=== PATIENT | female | born 1955 | race Caucasian/White ===

== ENCOUNTER 2016-05-31 08:03 | Outpatient (RCR) | payer OTHER ==
[~2016-05-31 08:03] MED LIST: DICL75TA2 PO; DOXY100C2 PO; HYDR-3812 PO; LEVO500T2 PO; ONDA4TAB8 PO; ONDA8TAB13 PO; SULF1TAB35 PO
== END 2016-06-03 08:00 | disposition home or self-care (01) ==
PROVIDERS: ATTEND Nurse Practitioner Family
DX: S89.91XD Unspecified injury of right lower leg, subsequent encounter (principal); Y99.8 Other external cause status; V48.0XXD Car driver injured in noncollision transport accident in nontraffic accident, subsequent encounter

== ENCOUNTER 2016-07-15 07:52 | Outpatient (RCR) | payer BC, OTHER ==
--- OUTSIDE RECORDS SUMMARY | 2016-06-15 10:57 | XMS REPORT | Continuity of Care Document ---
Author Author [facility] Address Unknown Phone Unavailable Allergies Active Description Code Type Severity Reaction Onset Reported/Identified Relationship to Patient Clinical Status Yes No Known Drug Allergies [id number] Drug Allergy Unknown N/ A 12/09/2014 Medications Problems Date Dx Coded Attending Type Code Diagnosis Diagnosed By 11/06/2013 ZULAY YBARRA DO V70.0 ROUTINE GENERAL MEDICAL EXAMINATION AT A HEALTH CARE FACILITY 12/10/2014 ILEANA WAGNER DO Ot 599.0 URIN TRACT INFECTION NOS 12/10/2014 ILEANA WAGNER DO Ot 780.60 FEVER, UNSPECIFIED 12/10/2014 ILEANA WAGNER DO Ot 790.29 OTHER ABNORMAL GLUCOSE 09/24/2015 PACO SMITH, JOSE Ash Ot M17.11 UNILATERAL PRIMARY OSTEOARTHRITIS, RIGHT 09/24/2015 JOSE ANTONIO MD Ot S80.01XA CONTUSION OF RIGHT KNEE, INITIAL ENCOUNT 09/24/2015 JOSE ANTONIO MD Ot V48.0XXA [facility]RAW[facility] 09/24/2015 JOSE ANTONIO MD Ot Y92.[address] [facility] [address] 09/24/2015 JOSE ANTONIO MD Ot Y99.8 OTHER EXTERNAL CAUSE STATUS 09/25/2015 JOSE ANTONIO MD Ot M17.11 UNILATERAL PRIMARY OSTEOARTHRITIS, RIGHT 09/25/2015 JOSE ANTONIO MD Ot S80.01XA CONTUSION OF RIGHT KNEE, INITIAL ENCOUNT 09/25/2015 JOSE ANTONIO MD Ot V48.0XXA DRAWING CHECKER [facility] 09/25/2015 JOSE ANTONIO MD Ot Y92.[address] [facility] [address] 09/25/2015 JOSE ANTONIO MD Ot Y99.8 OTHER EXTERNAL CAUSE STATUS 10/11/2015 VINNIE MOSS Ot L03.115 CELLULITIS OF RIGHT LOWER LIMB 10/11/2015 VINNIE MOSS Ot S70.11XD CONTUSION OF RIGHT THIGH, SUBSEQUENT ENC 10/13/2015 VINNIE MOSS Ot L03.115 CELLULITIS OF RIGHT LOWER LIMB 10/13/2015 VINNIE MOSS Ot S70.11XD CONTUSION OF RIGHT THIGH, SUBSEQUENT ENC Procedures Results Encounters ACCT No. Visit Date/Time Discharge Status Pt. Type Provider Facility Loc./Unit Complaint [id number] 11/07/2013 07:57:00 11/07/2013 23: 59:[address] [facility] Outpatient ZULAY YBARRA DO
== END 2016-07-15 11:18 | disposition home or self-care (01) ==
PROVIDERS: ATTEND Nurse Practitioner Family
DX: S89.91XD Unspecified injury of right lower leg, subsequent encounter (principal); Y99.8 Other external cause status; V48.0XXD Car driver injured in noncollision transport accident in nontraffic accident, subsequent encounter

== ENCOUNTER → 2018-07-20 | Outpatient (CLI) | payer BC ==
[~2018-07-20] MED LIST changes: +ACHD5005 PO; -HYDR-3812 PO
--- NOTE | 2018-07-20 16:42 | Diagnostic Imaging Report ---
PROCEDURE: CT right lower extremity without contrast. TECHNIQUE: Axially acquired CT was obtained through the right lower extremity without intravenous contrast. Coronal and sagittal reformations were also performed. Auto Exposure Controls were utilized during the CT exam to meet ALARA standards for radiation dose reduction. INDICATION: Primary osteoarthritis. FINDINGS: Multiple images of the right lower extremity were obtained using the Microport knee protocol established for Dr. Hewitt. There is no fracture or acute bony abnormality identified. There is severe degenerative disease involving the medial compartment of each knee joint. There is only mild degenerative disease of the lateral compartment of the right knee joint. There is moderate narrowing of the lateral aspect of the patellofemoral space on the right. There also appears to be a small joint effusion present. IMPRESSION: 1. Routine images of the right lower extremity obtained using the Microport knee protocol. 2. There is no acute bony abnormality identified. 3. There is severe degenerative disease involving the medial compartment of both knee joints. Dictated by: Dictated on workstation # [id number]
== END ==
LOC: RAD 07:32
PROVIDERS: ATTEND Orthopaedic Surgery
DX: M17.11 Unilateral primary osteoarthritis, right knee (principal)
CPT/HCPCS: 73700

== ENCOUNTER 2018-09-06 09:08 | Outpatient (CLI) | payer BC ==
[~2018-09-06] VITALS: Ht 157.5 cm; Wt 93.7 kg
[2018-09-06] MEDS ORDERED: DICL1TAB50 PO (09:23)
[2018-09-06] MEDS ORDERED: MULT-974 PO (09:23)
[2018-09-06] MEDS ORDERED: LISI10TA2 PO (09:23)
[2018-09-06 09:26] VITALS: BP 126/82
[2018-09-06 10:00] LABS: BILIRUBIN,URINE NEGATIVE (NEGATIVE); CLARITY,URINE SLIGHTLY CLOUDY; COLOR,URINE YELLOW; GLUCOSE, URINE (UA) NEGATIVE (NEGATIVE); KETONES,URINE NEGATIVE (NEGATIVE); LEUKOCYTE ESTERASE ,URINE 3+ (NEGATIVE); NITRITE,URINE POSITIVE (NEGATIVE); PH,URINE 5 (5-9); PROTEIN,URINE NEGATIVE (NEGATIVE); UROBILINOGEN,URINE NORMAL (NORMAL)
[2018-09-06 10:04] LABS: BASOPHILS % (AUTO) 0 % (0-10); EOSINOPHILS # (AUTO) 0.2 10^3/uL (0.0-0.3); EOSINOPHILS % (AUTO) 3 % (0-10); HEMATOCRIT 40 % (35-52); HEMOGLOBIN 13.4 G/DL (11.5-16.0); LYMPHOCYTES # (AUTO) 1.7 X 10^3 (1.0-4.0); LYMPHOCYTES % (AUTO) 27 % (12-44); MEAN CORPUSCULAR HEMOGLOBIN 33 PG (25-34); MEAN CORPUSCULAR HGB CONC 34 G/DL (32-36); MEAN CORPUSCULAR VOLUME 97 FL (80-99); MEAN PLATELET VOLUME 9.8 FL (7.4-10.4); MONOCYTES # (AUTO) 0.6 X 10^3 (0.0-1.0); MONOCYTES % (AUTO) 10 % (0-12); NEUTROPHILS # (AUTO) 3.7 X 10^3 (1.8-7.8); NEUTROPHILS % (AUTO) 60 % (42-75); PLATELET COUNT 214 10^3/uL (130-400); RED CELL DISTRIBUTION WIDTH 12.1 % (10.0-14.5); WHITE BLOOD COUNT 6.2 10^3/uL (4.3-11.0)
[2018-09-06 10:09] LABS: BACTERIA,URINE MODERATE /HPF; WBC,URINE 50-100 /HPF
[2018-09-06 10:13] LABS: PROTHROMBIN TIME PATIENT 13.1 SEC (12.2-14.7)
[2018-09-06 10:20] LABS: ALANINE AMINOTRANSFERASE 39 U/L (0-55); ALBUMIN 4.2 GM/DL (3.2-4.5); ALKALINE PHOSPHATASE 109 U/L (40-136); BILIRUBIN,TOTAL 0.4 MG/DL (0.1-1.0); BUN/CREATININE RATIO 24; CALCIUM 9.4 MG/DL (8.5-10.1); CARBON DIOXIDE 22 MMOL/L (21-32); CHLORIDE 106 MMOL/L (98-107); CREATININE SERUM 0.83 MG/DL (0.60-1.30); GFR ESTIMATED > 60; GLUCOSE 108 MG/DL (70-105); POTASSIUM 4.2 MMOL/L (3.6-5.0); SODIUM 138 MMOL/L (135-145)
[2018-09-06 10:29] LABS: ERYTHROCYTE SEDIMENTATION RATE 14 MM/HR (0-30)
--- NOTE | 2018-09-06 11:02 | Diagnostic Imaging Report ---
INDICATION: Preoperative evaluation for knee replacement COMPARISON: None FINDINGS: Frontal and lateral views of the chest demonstrate normal heart size and pulmonary vascularity. The lungs are clear. There are no signs of infiltrate, pleural effusions or pneumothoraces. The visualized osseous structures show no acute abnormalities. IMPRESSION: 1. No acute process. No signs of infiltrates, effusions or pneumothoraces. Dictated by: Dictated on workstation # [id number]
[2018-09-06] MEDS ORDERED: DICL1TAB53 PO (11:12)
== END 2018-09-06 15:13 | disposition home or self-care (01) ==
LOC: PREOP 09:08
PROVIDERS: ATTEND Orthopaedic Surgery
DX: Z01.810 Encounter for preprocedural cardiovascular examination (principal); Z01.811 Encounter for preprocedural respiratory examination; Z01.812 Encounter for preprocedural laboratory examination; Z11.2 Encounter for screening for other bacterial diseases; M17.11 Unilateral primary osteoarthritis, right knee; R53.83 Other fatigue; R82.90 Unspecified abnormal findings in urine
CPT/HCPCS: 36415; 71046; 80053; 81000; 85025; 85610; 85652; 86850; 86900; 86901; 87077; 87081; 87088; 87186; 93005

== ENCOUNTER 2018-09-13 05:53 | Inpatient (IN) | payer BC ==
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
--- NOTE | 2018-09-06 11:13 | NUR ---
CALLED [facility] TO VERIFY THE PRESCRIPTIONS REPORTED IN PREOP. [facility] FILLED: 09-02-18 LISINOPRIL 10MG DAILY 09-02-18 ARTHROTEC 75-200 BID LEFT THE MTV DAILY THAT IS OTC.
[~2018-09-13] VITALS: Ht 157.5 cm; Wt 93.7 kg
[2018-09-13] VITALS (13 sets, daily range): BP systolic 65–147; BP diastolic 16–87
[~2018-09-13 05:53] MED LIST changes: +DICL1TAB50 PO; +DICL1TAB53 PO; +LISI10TA2 PO; +MULT-974 PO
[2018-09-13] MEDS ORDERED: INTRA-ARTICULAR IU ONE ×5 (06:45)
[2018-09-13] MEDS ORDERED: ONDANSETRON 4 MG/2 ML (SDV) Z0FRAN ONE (06:51)
[2018-09-13] MEDS ORDERED: ROPIVACAINE 5MG/ML 30ML VIAL ONE (06:51)
[2018-09-13] MEDS ORDERED: fentaNYL INJECTION 100 MCG/2 ML AMP ONE ×2 (06:51→08:07)
[2018-09-13] MEDS ORDERED: proPOfol 200 MG/20 ML (DIPRIVAN) VIAL IV ONE (06:51)
[2018-09-13] MEDS ORDERED: MIDAZOLAM 2 MG/2 ML (VERSED) VIAL ONE (06:51)
[2018-09-13] MEDS ORDERED: LIDOCAINE PF 2% 5 ML (XYLOCAINE) VIAL ONE (06:51)
[2018-09-13] MEDS ORDERED: DEXAMETHASONE 10 MG/ML (DECADRON) 1 ML VIAL ONE (06:51)
[2018-09-13] MEDS ORDERED: CATHETER FLUSH 10 ML SYR IV PRN (07:00)
[2018-09-13] MEDS ORDERED: CEFUROXIME INJECTION 1,500 MG in WATER (STERILE) FOR INJECTION 15 ML IV ONE (07:00)
[2018-09-13] MEDS ORDERED: diphenhydrAMINE 50 MG/ML INJ (BENADRYL) IVP PRN (07:15)
[2018-09-13] MEDS ORDERED: ACETAMINOPHEN 325 MG TABLET PO PRN (07:15)
[2018-09-13] MEDS ORDERED: ONDANSETRON 4 MG/2 ML (SDV) Z0FRAN IVP PRN ×2 (07:15→09:15)
[2018-09-13] MEDS ORDERED: morphine PCA 100 MG/100 ML BAG IV PRN (07:15)
[2018-09-13] MEDS: LACTATED RINGERS 1,000 ML IV PRN ×2 (07:17→08:43)
--- NOTE | 2018-09-13 07:22 | Progress Note-Pre Operative ---
Pre-Operative Progress Note H&P Reviewed The H&P was reviewed, patient examined and no changes noted. Date Seen by Provider: Sep 13, 2018 Time Seen by Provider: 07:15 Date H&P Reviewed: Sep 13, 2018 Time H&P Reviewed: 07:22 Pre-Operative Diagnosis: right knee primary osteoarthritis TYRA ECHEVERRIA MD Sep 13, 2018 07:22
--- NOTE | 2018-09-13 07:23 | Progress Note-Post Operative ---
Post-Operative Progess Note Surgeon (s)/Needle Loom Tender (s) Surgeon TYRA ECHEVERRIA MD Needle Loom Tender: Leobardo May Pre-Operative Diagnosis right knee primary osteoarthritis Post-Operative Diagnosis right knee primary osteoarthritis Procedure & Operative Findings Date of Procedure 09/13/18 Procedure Performed/Findings right total knee arthroplasty Anesthesia Type GETA plus regional Estimated Blood Loss Estimated blood loss (mL): minimal Specimens/Packing Specimens Removed none Packing: none TYRA ECHEVERRIA MD Sep 13, 2018 07:23
[2018-09-13] MEDS ORDERED: OXYC1TAB87 PO (07:24)
--- NOTE | 2018-09-13 07:27 | D/C HH Face to Face Order ---
D/C Face to Face Orders Instructions for Patient [facility], Patient Instructions/FollowUp: three weeks Physician to follow Patient: three weeks Discharge Diet for Home: Regular Diet Patient Data-Allergies,Ht & Wt Patient Allergies: Coded Allergies: No Known Drug Allergies (Unverified , 09/06/18) Height (Feet): 5 Height (Inches): 2.00 Weight (Pounds): 206 Weight (Ounces): 8.0 Home Health Need/Face to Face Date of Face to Face: Sep 13, 2018 Clinical Findings: Instability, Muscle weakness, Pain with ambulation, Unsteady gait I have seen Pt [id number]: Yes Discharged To: Home Diagnosis/Conditions: right total knee arthroplasty Patient is Homebound due to: Tejal fall risk due to instabilty, Muscle weakness, Pain w/ambulation Homebound Status Due to the above stated illness, injury or surgical procedure (medical condition or diagnosis) and associated clinical findings, the patient is homebound because of his/her inability to leave home except with aid of a supportive device and/or person AND leaving the home requires a considerable and taxing effort or is medically contraindicated. Pt req the following assistanc: [facility] Nursing Orders Home Health Services Order: Physical Therapy-Evaluate & Treat DC right knee gilson and apply steri strips 09/27/18 [facility] Line Start Date: Sep 13, 2018 Therapy Orders Therapy Orders: Physical Therapy, PT to assess for OT Therapy Specific Orders: Eval assistive deivces, Teach enviro modifications/safety, Gait training, Increase strength/endurance, Provider maintenance therapy, Restore ROM Certify Stmt I certify that this patient is under my care and that I, a nurse practitioner or a physician; a processing assistant working with me, had a face to face encounter that - meets the physician face to face encounter requirements with this patient as dated. TYRA ECHEVERRIA MD Sep 13, 2018 07:27
[2018-09-13] MEDS ORDERED: TRANEXAMIC ACID 100 MG/ML 10 ML INJECTION IV ONE (07:52)
[2018-09-13] MEDS ORDERED: ROCURONIUM 10 MG/ML 5 ML SYRINGE IV ONE (08:42)
[2018-09-13] MEDS ORDERED: SEVOFLURANE (ULTANE) 15 ML INHAL SOLN ONE (09:02)
[2018-09-13] MEDS ORDERED: morphine INJ 10 MG/ML 1ML (SYR OR VIAL) ONE (09:12)
[2018-09-13] MEDS ORDERED: MEPERIDINE (DEMEROL) INJ 50 MG/ML IVP ONE (09:15)
[2018-09-13] MEDS ORDERED: HYDROmorphone 2 MG/ML VIAL (DILAUDID) IV ONE (09:15)
[2018-09-13] MEDS ORDERED: morphine INJ 10 MG/ML 1ML (SYR OR VIAL) IVP ONE (09:15)
[2018-09-13] MEDS ORDERED: HYDROmorphone 2 MG/ML VIAL (DILAUDID) ONE (09:24)
[2018-09-13] MEDS: NS IV 1000 ML 1,000 ML IV SCH ×2 (09:45→11:11)
--- NOTE | 2018-09-13 10:14 | Diagnostic Imaging Report ---
Right knee in OR at 9:46 The AP and lateral views of the knee joint were received from the OR. The prior CT right lower extremity exam of 07/20/2018 noted severe degenerative disease involving the medial compartments of both knee joints. In the interval since the prior exam, the patient has undergone a total knee arthroplasty procedure. The prosthetic components seem to be in good position. There is gas in the soft tissues about the knee joint and skin gilson are seen along the anterior aspect of the knee joint. There is no fracture or acute bony abnormality evident. Impression: Stable postoperative right knee. Dictated by: Dictated on workstation # [id number]
--- NOTE | 2018-09-13 10:35 | NUR ---
PT ARRIVED TO ROOM. THIS RN TO RESUME CARE. THIS RN AGREES WITH PREVIOUS MACHINE STUFFER AUTOMATIC.
[2018-09-13] MEDS ORDERED: NS IV 1000 ML 1,000 ML ONE (10:50)
--- NOTE | 2018-09-13 11:07 | Progress Note-Standard ---
Standard Progress Note Progress Notes/Assess & Plan Date Seen by a Provider: Sep 13, 2018 Time Seen by a Provider: 09:30 Progress/Assessment & Plan post op check no complaints radiographs--HW well positioned without fracture RLE--2 plus DP pulse with brisk cap refill. sensation intact to light touch throughout. intact DF and PF of toes and ankle s/p RTKA mobilize as able TYRA ECHEVERRIA MD Sep 13, 2018 11:07
[2018-09-13] MEDS ORDERED: SENNA W/DOCUSATE (SENOKOT S) TABLET ONE (11:10)
[2018-09-13] MEDS: SENNA W/DOCUSATE (SENOKOT S) TABLET PO SCH ×2 (11:15→20:49)
[2018-09-13] MEDS ORDERED: morphine PCA 100 MG/100 ML BAG IV ONE (11:36)
--- NOTE | 2018-09-13 11:39 | OPERATIVE REPORT ---
DATE OF SERVICE: 09/13/2018 ADDENDUM PROCEDURE IN DETAIL: After the subcutaneous tissues were irrigated and dried using a total of 6 liters throughout the procedure, 0 Vicryl was used to close the deep subcutaneous layer and 2-0 Vicryl for the superficial subcutaneous tissue, gilson were used on the skin. A soft dressing was applied. The tourniquet was deflated and the patient was transported to recovery room awake in stable condition. Job ID: [id number] DocumentID: [id number] Dictated Date: 09/13/2018 09:17:26 Emergency Department Coordinator Date: 09/13/2018 11:38:16 Dictated By: TYRA ECHEVERRIA MD
--- NOTE | 2018-09-13 12:56 | Consultation-Hospitalist ---
HPI History of Present Illness: HPI/Chief Complaint CC: Medical management following uncomplicated right total knee replacement POD # 0 HPI: This is a 62yoWF pt of Dr. Santoro underwent a complicated right total knee replacement today by Dr. Hewitt. Her family is at the bedside including her son, daughter, and granddaughter. She reports no chest pain no SOB and she has been able to urinate since surgery pain is well controlled ice pack is on the right knee and has no new issues to report. I did restart her Lisinopril home medication and I will check labs in the morning and monitor closely for any clinical status decline. Source: patient, family, RN/MD Exam Limitations: no limitations Date Seen 09/13/18 Attending Physician Armani Hewitt MD PCP Shavon Santoro MD Referring Physician Date of Admission Sep 13, 2018 at 05:53 Home Medications & Allergies Home Medications Reviewed patient Home Medication Reconciliation performed by pharmacy medication reconciliations morgue technician and/or nursing. Patients Allergies have been reviewed. Allergies Allergies Coded Allergies No Known Drug Allergies (Unverified09/06/18) Past Mxfaqvp-Jnnwnk-Vnlujm Hx Past Med/Social Hx: Reviewed Nursing Past Med/Soc Hx, Reviewed and Corrections made Patient Social History Marrital Status: single Employed/Student: employed ([employer] 7 yrs) Alcohol Use: Past History Recreational Drug Use: No Smoking Status: Never a Smoker Physical Abuse Screen: No Sexual Abuse: No Recent Foreign Travel: No Contact w/other who traveled: No Recent Hopitalizations: No Recent Infectious Disease Expo: No Seasonal Allergies Seasonal Allergies: Yes (MILD) Past Medical History Surgeries: Hysterectomy Cardiac: Hypertension Reproductive: Yes Sexually Transmitted Disease: No HIV/AIDS: No Hysterectomy Gastrointestinal: Gastroesophageal Reflux Musculoskeletal: Arthritis Loss of Vision: Bilateral Hearing Impairment: Denies History of Blood Disorders: No Adverse Reaction to Blood Arrington: No (N/A) Family History Heart Disease, Cancer, Diabetes Review of Systems Constitutional: see HPI EENTM: no symptoms reported Respiratory: no symptoms reported Cardiovascular: no symptoms reported Gastrointestinal: no symptoms reported Genitourinary: no symptoms reported Musculoskeletal: no symptoms reported Skin: no symptoms reported Psychiatric/Neurological: No Symptoms Reported All Other Systems Reviewed Negative Unless Noted: Yes Physical Exam Physical Exam Vital Signs Vital Signs - First Documented 09/13/18 09/13/18 06:30 08:00 Temp 96.6 Pulse 77 Resp 18 B/P (MAP) 132/76 Pulse Ox 96 O2 Delivery Room Air O2 Flow Rate 3.00 Capillary Refill : Less Than 3 Seconds Height, Weight, BMI Height: 5'2.00" Weight: 206lbs. 8.0oz. 93.246897jg; 37.8 BMI Method:Stated General Appearance: No Apparent Distress, WD/WN, Obese Eyes: Bilateral Eye Normal Inspection, Bilateral Eye PERRL HEENT: PERRL/EOMI, TMs Normal, Normal ENT Inspection, Pharynx Normal Neck: Full Range of Motion, Normal Inspection, Non Tender, Supple, Carotid Bruit Respiratory: Chest Non Tender, Lungs Clear, Normal Breath Sounds, No Accessory Muscle Use, No Respiratory Distress Cardiovascular: Regular Rate, Rhythm, No Edema, No Gallop, No JVD, No Murmur, Normal Peripheral Pulses Gastrointestinal: Normal Bowel Sounds, No Organomegaly, No Pulsatile Mass, Non Tender, Soft Back: Normal Inspection, No CVA Tenderness, No Vertebral Tenderness Extremity: Normal Capillary Refill, Normal Inspection, Normal Range of Motion (except right knee s/p OR), Non Tender, No Calf Tenderness, No Pedal Edema Neurologic/Psychiatric: Alert, Oriented x3, No Motor/Sensory Deficits, Normal Mood/Affect Skin: Normal Color, Warm/Dry Lymphatic: No Adenopathy Results Results/Procedures Labs Patient resulted labs reviewed. Assessment/Plan Assessment and Plan Assess & Plan/Chief Complaint Assessment: s/p right TKA POD # 0 HTN OA Plan: Check labs in am Home meds Diagnosis/Problems Diagnosis/Problems (1) Status post total right knee replacement Status: Acute (2) Hypertension Status: Chronic Qualifiers: Hypertension type: essential hypertension Qualified Codes: I10 - Essential (primary) hypertension (3) Osteoarthritis of right knee Status: Chronic Qualifiers: Osteoarthritis type: primary Qualified Codes: M17.11 - Unilateral primary osteoarthritis, right knee Clinical Quality Measures DVT/VTE Risk/Contraindication: Risk Factor Score Per Nursin RFS Level Per Nursing on Admit: 4+=Very High LORIN CARDENAS DO Sep 13, 2018 12:56
--- NOTE | 2018-09-13 13:40 | OPERATIVE REPORT ---
DATE OF SERVICE: 09/13/2018 PREOPERATIVE DIAGNOSIS: Right knee osteoarthritis. POSTOPERATIVE DIAGNOSIS: Right knee osteoarthritis. PROCEDURE: Right total knee arthroplasty. SURGEON: Armani Hewitt MD TAIL SAWYER: Leobardo May, who assisted throughout the procedure and closed the incision. ANESTHESIA: General endotracheal plus regional block by Klever St CRNA. TOURNIQUET TIME: Approximately 65 minutes at 300 mmHg. ESTIMATED BLOOD LOSS: Minimal. DRAINS: None. COMPLICATIONS: None. POSTOPERATIVE PLAN: Routine total knee arthroplasty protocol. MATERIALS: MicroPort cement size 4 femur, cemented size 4 tibia with a 14 mm insert and cemented insert, 32 patellar button. STATEMENT OF MEDICAL NECESSITY: The patient is a 62-year-old female with longstanding right knee pains had progressed to the point where it was interfering with her activities of daily living. Radiographs revealed severe medial patellofemoral arthrosis with moderate lateral femoral arthrosis due to progressive symptoms and failure to improve with conservative measures, the patient elected to proceed with surgical intervention. DESCRIPTION OF PROCEDURE: After risks and benefits of procedure were discussed and questions were answered and informed consent was signed and placed on the chart. The operative site was confirmed in the preoperative holding area initialed by the surgeon. The patient was then transferred to the operating room. After adequate levels of general endotracheal anesthetic were obtained, a timeout was called, confirming the operative site. The right lower extremity was prepped and draped in the usual sterile fashion with the leg elevated and the knee flexed, tourniquet inflated to 300 mmHg. An anterior approach was utilized. Hemostasis was obtained with cautery. Medial parapatellar arthrotomy was performed leaving a 1 cm cuff on the patella for later reattachment. A portion of the fat pad was resected. The ACL was resected. The custom made block was placed on the distal femur and had excellent coverage. This was then pinned into position and the distal cutting block was placed. The distal cut was made and the 4 in 1 size 4 cutting block was placed and the cuts were made from posterior to anterior. A subperiosteal release was then carefully performed on the posterior distal femur, being careful to stay on the bony surface. The tibial cutting block was placed with the custom block. This was pinned into position. The intramedullary guide vesna was transferred to the intramedullary axis. The cut was made. The baseplate was placed and the drop vesna transected the intramedullary access. It was then prepared with the drill and keel punch. The patella was then prepared by using a freehand technique resecting 10 mm off the undersurface. A peg guide was placed and the peg holes were drilled. The trials were inserted. Full extension was easily obtained with a 14 mm insert, 120 degrees of flexion with gravity was easily obtained. There was no anterior/posterior or medial/lateral laxity in flexion or extension. The trials were removed. The periarticular block was placed in the posterior capsule, medial and lateral retinaculum, extensor mechanism and subcutaneous tissue. Bone ends were irrigated and dried. The tibial baseplate was cemented into position. Superior surface was irrigated and dried. Excess cement was removed. The polyethylene insert was placed. Distal femur was irrigated and dried and the permanent prosthesis was cemented into position. Excess cement was removed. The knee was brought into full extension until cement had cured. The undersurface of patella was irrigated and dried. The patellar button was cemented into position. Excess cement was removed. The knee was taken through a range of motion. The patella tracked well. There was full extension with no anterior/posterior or medial/lateral laxity in flexion or extension. Greater than 120 degrees of flexion was easily obtained. The joint was further irrigated. The arthrotomy was closed with #2 Tevdek in gbsfij-xf-[id number] interrupted fashion. The subcutaneous tissues were irrigated. The knee was flexed. No undue tension at the repair site. The patella tracked well. A 0 Vicryl was used in the deep subcutaneous tissues, 2-0 Vicryl for the superficial subcutaneous tissue. Job ID: [id number] DocumentID: [id number] Dictated Date: 09/13/2018 09:14:41 Felt Cutting Machine Operator Date: 09/13/2018 13:39:59 Dictated By: ARMANI HEWITT MD
--- NOTE | 2018-09-13 13:55 | Physical Therapy Evaluation ---
PT Evaluation-General Medical Diagnosis Admission Date Sep 13, 2018 at 05:53 Medical Diagnosis: right TKA Onset Date: Sep 13, 2018 Therapy Diagnosis Therapy Diagnosis: impaired mobility, strength, endurance, ROM Height/Weight Height (Feet): 5 Height (Inches): 2.00 Weight (Pounds): 206 Weight (Ounces): 8.0 Precautions Precautions/Isolations: Fall Prevention, Standard Precautions Weight Bear Status Right Lower Extremity: Right Weight Bearing/Tolerated Referral Physician: Leobardo May Reason for Referral: Evaluation/Treatment Medical History Additional Medical History hysterectomy, right knee surgery Reviewed History: Yes Social History Home: Single Level Current Living Status: Alone Entry Into Home: Stairs With Railing PT Steps Into Home: 1 Patient lives alone but states she will have assistance available. Prior/Core FIM Prior Level of Function Therapy Code Descriptions/Definitions Functional Comstock Measure: 0=Not Assessed/NA 4=Minimal Assistance 1=Total Assistance 5=Supervision or Setup 2=Maximal Assistance 6=Modified [place] 3=Moderate Assistance 7=Complete Com[place] Therapy Quality Codes: 6 Independent with activity with or without an assistive device 5 Patient requires set up or clean up by helper. Patient completes activity by themselves 4 Supervision or touching assist (CGA). [place] provide cues , steadying assist 3 The helper provides less than half the effort to complete the activity 2 The helper provides more than half the effort to complete the activity 1 Dependent. The helper does all the effort to complete an activity 7 Patient refused to complete or attempt activity 9 The patient did not perform the activity before the current illness or injury 88 Not attempted due to Medical conditions or safety concerns Functional Abilities and Goals: Independent: Patient completed the activities by him/herself, with or without an assistive device, with no assistance from a helper. Needed Some Help: Patient needed partial assistance from another person to complete activities. Dependent: A helper completed the activities for the patient. Unknown: Not Applicable: Bed Mobility: 7 Transfers (B,C,W/C) (FIM): 7 Gait: 7 Stairs: 7 Indoor Mobility (Ambulation): Independent Stairs: Independent PT Evaluation-Current Subjective Patient in bed pre tx, agrees to PT, has 3/10 pain in right knee. Pt/Family Goals to be independent at home Objective Patient Orientation: Person, Place, Situation Attachments: SCD's, Oxygen, Polar Pack, IV ROM/Strength ROM Lower Extremities right knee flexion 70 degrees, extension +3 degrees Strength Lower Extremities NT Neuromuscular (Tone, Coordination, Reflexes) NT Sensory Vision: Wears Glasses Hearing: Functional Sensation Right Lower Extremit: Impaired Sensation Left Lower Extremity: Intact Sensation Lower Extremities Patient has some numbness still in her calf below the knee. Transfers Therapy Code Descriptions/Definitions Functional Com[place] Measure: 0=Not Assessed/NA 4=Minimal Assistance 1=Total Assistance 5=Supervision or Setup 2=Maximal Assistance 6=Modified [place] 3=Moderate Assistance 7=Complete [place] Transfers (B, C, W/C) (FIM): 5 Scootin Rollin Supine to/from Sit: 5 Sit to/from Stand: 5 Patient has some difficulty getting right leg into and out of bed but can do it without assist. Patient needs cues for hand placement during sit <-> stand. Patient vomited in basin after sitting but felt a little better afterward and was willing to stand. She stood for a few minutes, was a little woozy but no more nausea. She was able to bear weight through her right leg, performed weight shifting, no buckling. Balance Sitting Static: Normal Sitting Dynamic: Normal Standing Static: Good Standing Dynamic: Good Treatment RLE total knee protocol x10 (AP, HS, QS, SAQ, SLR), CPM donned and fit to patient's leg and set to 60/-2 degrees. Patient in bed post tx with nurse call, phone, tray, all needs met. Has polar care and SCD's on. Family in the room. Assessment/Needs Patient has impaired mobility, strength, endurance, ROM post right TKA. She is nauseated after sitting and vomited but was able to stand and bear some weight through her right leg. Rehab Potential: Fair PT Short Term Goals Short Term Goals Time Frame: Sep 20, 2018 Transfers (B,C,W/C) (FIM): 5 Gait (FIM): 2 Gait Distance Comment: 50' Gait Level of Assist: 4 Gait Assistive Device: FWW PT Plan Problem List Problem List: Activity Tolerance, Functional Strength, Safety, Balance, Gait, Transfer, Bed Mobility, ROM Treatment/Plan Treatment Plan: Continue Plan of Care Treatment Plan: Bed Mobility, Education, Functional Activity Gayathri, Functional Strength, Gait, Safety, Therapeutic Exercise, Transfers Treatment Duration: Sep 20, 2018 Frequency: 11 times per week Estimated Hrs Per Day: .25 hour per day (15-30') Patient and/or Family Agrees t: Yes Safety Risks/Education Patient Education: Gait Training, Transfer Techniques, Correct Positioning, Safety Issues Teaching Recipient: Patient Teaching Methods: Demonstration, Discussion Response to Teaching: Reinforcement Needed Discharge Recommendations Plan Patient will perform bed mobility and transfer training, balance and endurance training, functional strengthening, stair training, gait training, and education, to improve functional mobility and independence at home. Therapy D/C Recommendations: Home w/ Family Support Time/GCodes Time In: 1311 Time Out: 1340 Total Billed Treatment Time: 29 Total Billed Treatment 1 visit EVL 15' FA 14' JAN MARS PT Sep 13, 2018 13:55
[2018-09-13] MEDS: CEFUROXIME INJECTION 750 MG in WATER (STERILE) FOR INJECTION 10 ML IV SCH (16:24)
[2018-09-14] VITALS (7 sets, daily range): BP systolic 99–136; BP diastolic 43–62
[2018-09-14] MEDS: CEFUROXIME INJECTION 750 MG in WATER (STERILE) FOR INJECTION 10 ML IV SCH (02:01)
[2018-09-14] MEDS: NS IV 1000 ML 1,000 ML IV SCH ×3 (02:02→12:28)
[2018-09-14 05:57] LABS: BASOPHILS % (AUTO) 0 % (0-10); EOSINOPHILS % (AUTO) 0 % (0-10); HEMATOCRIT 36 % (35-52); HEMOGLOBIN 11.5 G/DL (11.5-16.0); LYMPHOCYTES # (AUTO) 1.2 X 10^3 (1.0-4.0); LYMPHOCYTES % (AUTO) 10 % (12-44); MEAN CORPUSCULAR HEMOGLOBIN 32 PG (25-34); MEAN CORPUSCULAR HGB CONC 32 G/DL (32-36); MEAN CORPUSCULAR VOLUME 100 FL (80-99); MEAN PLATELET VOLUME 10.3 FL (7.4-10.4); MONOCYTES % (AUTO) 8 % (0-12); NEUTROPHILS # (AUTO) 10.1 X 10^3 (1.8-7.8); NEUTROPHILS % (AUTO) 82 % (42-75); PLATELET COUNT 197 10^3/uL (130-400); RED CELL DISTRIBUTION WIDTH 12.5 % (10.0-14.5); WHITE BLOOD COUNT 12.2 10^3/uL (4.3-11.0)
[2018-09-14] MEDS: MULTIVIT W/MINERALS TAB (THERAGRAN M) PO SCH (05:59)
[2018-09-14 06:42] LABS: ALANINE AMINOTRANSFERASE 31 U/L (0-55); ALBUMIN 3.7 GM/DL (3.2-4.5); ALKALINE PHOSPHATASE 72 U/L (40-136); BILIRUBIN,TOTAL 0.6 MG/DL (0.1-1.0); BUN/CREATININE RATIO 17; CALCIUM 8.7 MG/DL (8.5-10.1); CARBON DIOXIDE 22 MMOL/L (21-32); CHLORIDE 106 MMOL/L (98-107); CREATININE SERUM 0.76 MG/DL (0.60-1.30); GFR ESTIMATED > 60; GLUCOSE 101 MG/DL (70-105); POTASSIUM 4.5 MMOL/L (3.6-5.0); SODIUM 136 MMOL/L (135-145); TOTAL PROTEIN 5.9 GM/DL (6.4-8.2)
--- NOTE | 2018-09-14 08:07 | Progress Note-Standard ---
Standard Progress Note Progress Notes/Assess & Plan Date Seen by a Provider: Sep 14, 2018 Time Seen by a Provider: 08:06 Progress/Assessment & Plan post op check no complaints radiographs--HW well positioned without fracture RLE--2 plus DP pulse with brisk cap refill. sensation intact to light touch throughout. intact DF and PF of toes and ankle s/p RTKA mobilize as able Final Diagnosis no complaints Vital Signs Date Time Temp Pulse Resp B/P (MAP) Pulse Ox O2 Delivery O2 Flow Rate FiO2 09/14/18 07:25 98.4 64 18 99/43 (61) 96 Room Air 09/14/18 06:08 20 09/14/18 04:00 97.6 54 18 107/57 (74) 98 Room Air 09/14/18 00:00 97.5 57 18 109/57 (74) 96 Room Air 09/13/18 21:00 Room Air 09/13/18 20:02 97.2 49 22 117/53 (74) 98 Room Air 09/13/18 16:11 96.6 50 20 110/55 (73) 95 Room Air 09/13/18 15:18 98 Nasal Cannula 2.00 09/13/18 12:00 95.8 53 18 93/52 (66) 95 Nasal Cannula 3.00 09/13/18 10:20 97.6 16 96 Nasal Cannula 3 09/13/18 10:10 16 95 OxyMask 3 09/13/18 10:00 59 97 OxyMask 3 09/13/18 09:50 16 10 OxyMask 10 09/13/18 09:40 16 99 OxyMask 10 09/13/18 09:30 16 98 10 09/13/18 09:20 20 96 OxyMask 10 09/13/18 09:10 97.0 18 97 OxyMask 10 I & O 09/14/18 07:00 Intake Total 2425 ml Output Total 575 ml Balance 1850 ml Laboratory Tests Test 09/14/18 05:30 Range/Units White Blood Count 12.2 H 4.3-11.0 10^3/uL Red Blood Count 3.56 L 4.35-5.85 10^6/uL Hemoglobin 11.5 11.5-16.0 G/DL Hematocrit 36 35-52 % Mean Corpuscular Volume 100 H 80-99 FL Mean Corpuscular Hemoglobin 32 25-34 PG Mean Corpuscular Hemoglobin Concent 32 32-36 G/DL Red Cell Distribution Width 12.5 10.0-14.5 % Platelet Count 197 130-400 10^3/uL Mean Platelet Volume 10.3 7.4-10.4 FL Neutrophils (%) (Auto) 82 H 42-75 % Lymphocytes (%) (Auto) 10 L 12-44 % Monocytes (%) (Auto) 8 0-12 % Eosinophils (%) (Auto) 0 0-10 % Basophils (%) (Auto) 0 0-10 % Neutrophils # (Auto) 10.1 H 1.8-7.8 X 10^3 Lymphocytes # (Auto) 1.2 1.0-4.0 X 10^3 Monocytes # (Auto) 1.0 0.0-1.0 X 10^3 Eosinophils # (Auto) 0.0 0.0-0.3 10^3/uL Basophils # (Auto) 0.0 0.0-0.1 10^3/uL Sodium Level 136 135-145 MMOL/L Potassium Level 4.5 3.6-5.0 MMOL/L Chloride Level 106 98-107 MMOL/L Carbon Dioxide Level 22 21-32 MMOL/L Anion Gap 8 5-14 MMOL/L Blood Urea Nitrogen 13 7-18 MG/DL Creatinine 0.76 0.60-1.30 MG/DL Estimat Glomerular Filtration Rate > 60 BUN/Creatinine Ratio 17 Glucose Level 101 70-105 MG/DL Calcium Level 8.7 8.5-10.1 MG/DL Corrected Calcium 8.9 8.5-10.1 MG/DL Total Bilirubin 0.6 0.1-1.0 MG/DL Aspartate Amino Transf (AST/SGOT) 24 5-34 U/L Alanine Aminotransferase (ALT/SGPT) 31 0-55 U/L Alkaline Phosphatase 72 40-136 U/L Total Protein 5.9 L 6.4-8.2 GM/DL Albumin 3.7 3.2-4.5 GM/DL RLE--dressing intact. NVI distally. Neg Elaine's s/p RTKA doing well PT/OT TYRA ECHEVERRIA MD Sep 14, 2018 08:07
--- NOTE | 2018-09-14 08:35 | Progress Note-Hospitalist ---
Subjective HPI/CC On Admission Date Seen by Provider: Sep 14, 2018 Time Seen by Provider: 09:00 CC: Medical management following uncomplicated right total knee replacement POD # 0 HPI: This is a 62yoWF pt of Dr. Santoro underwent a complicated right total knee replacement today by Dr. Hewitt. Her family is at the bedside including her son, daughter, and granddaughter. She reports no chest pain no SOB and she has been able to urinate since surgery pain is well controlled ice pack is on the right knee and has no new issues to report. I did restart her Lisinopril home medication and I will check labs in the morning and monitor closely for any clinical status decline. Subjective/Events-last exam Pt had a rough night with pain from the right knee replacement Will heplock IV fluid Nausea is much improved NO BM yet but taking meds Reviewed meds and labs No concerns from pt or family Review of Systems General: Fatigue Musculoskeletal: leg pain Objective Exam Vital Signs Vital Signs Date Time Temp Pulse Resp B/P (MAP) Pulse Ox O2 Delivery O2 Flow Rate FiO2 09/14/18 19:38 97.8 72 22 121/62 (81) 98 Room Air 09/13/18 15:18 2.00 Capillary Refill : Less Than 3 Seconds General Appearance: No Apparent Distress, WD/WN, Obese HEENT: PERRL/EOMI, TMs Normal, Normal ENT Inspection, Pharynx Normal Neck: Full Range of Motion, Normal Inspection, Non Tender, Supple, Carotid Bruit Respiratory: Chest Non Tender, Lungs Clear, Normal Breath Sounds, No Accessory Muscle Use, No Respiratory Distress Cardiovascular: Regular Rate, Rhythm, No Edema, No Gallop, No JVD, No Murmur, Normal Peripheral Pulses Gastrointestinal: Normal Bowel Sounds, No Organomegaly, No Pulsatile Mass, Non Tender, Soft Back: Normal Inspection, No CVA Tenderness, No Vertebral Tenderness Extremity: Normal Capillary Refill, Normal Inspection, Normal Range of Motion (except right knee s/p OR), Non Tender, No Calf Tenderness, No Pedal Edema Neurologic/Psychiatric: Alert, Oriented x3, No Motor/Sensory Deficits, Normal Mood/Affect Skin: Normal Color, Warm/Dry Lymphatic: No Adenopathy Results/Procedures Lab Laboratory Tests 09/14/18 05:30 Patient resulted labs reviewed. Assessment/Plan Assessment and Plan Assess & Plan/Chief Complaint Assessment: s/p right TKA POD # 1 HTN OA Plan: Check labs in am Home meds Diagnosis/Problems Diagnosis/Problems (1) Status post total right knee replacement Status: Acute (2) Hypertension Status: Chronic Qualifiers: Hypertension type: essential hypertension Qualified Codes: I10 - Essential (primary) hypertension (3) Osteoarthritis of right knee Status: Chronic Qualifiers: Osteoarthritis type: primary Qualified Codes: M17.11 - Unilateral primary osteoarthritis, right knee Clinical Quality Measures DVT/VTE Risk/Contraindication: Risk Factor Score Per Nursin RFS Level Per Nursing on Admit: 4+=Very High LORIN CARDENAS DO Sep 14, 2018 08:35
[2018-09-14] MEDS: SENNA W/DOCUSATE (SENOKOT S) TABLET PO SCH ×2 (08:48→20:48)
[2018-09-14] MEDS: oxyCODONE/APAP 5/325MG (PERCOCET 5) TABLET PO PRN ×7 (08:48→20:47)
[2018-09-14] MEDS: ASPIRIN E.C. 81 MG (ECOTRIN) TAB PO SCH (08:49)
[2018-09-14] MEDS: ENOXAPARIN 30 MG/0.3 ML (LOVENOX) SYR SC SCH ×2 (08:50→20:47)
[2018-09-14] MEDS ORDERED: MULTIVIT W/MINERALS TAB (THERAGRAN M) PO SCH (09:00)
--- NOTE | 2018-09-14 10:01 | Physical Therapy Daily Note ---
PT Daily Note-Current Subjective Patient agrees to PT. No c/o. Pain Numeric Pain Scale: 5-Moderate Pain Location: Right Location Body Site: Knee Pain Description: Acute Mental Status Patient Orientation: Normal For Age Attachments: Polar Pack, IV Transfers Therapy Code Descriptions/Definitions Functional Hardy Measure: 0=Not Assessed/NA 4=Minimal Assistance 1=Total Assistance 5=Supervision or Setup 2=Maximal Assistance 6=Modified [place] 3=Moderate Assistance 7=Complete Hardy Therapy Quality Codes: 6 Independent with activity with or without an assistive device 5 Patient requires set up or clean up by helper. Patient completes activity by themselves 4 Supervision or touching assist (CGA). [place] provide cues , steadying assist 3 The helper provides less than half the effort to complete the activity 2 The helper provides more than half the effort to complete the activity 1 Dependent. The helper does all the effort to complete an activity 7 Patient refused to complete or attempt activity 9 The patient did not perform the activity before the current illness or injury 88 Not attempted due to Medical conditions or safety concerns Transfers (B, C, W/C) (FIM): 6 Scootin Rollin Supine to/from Sit: 6 Sit to/from Stand: 6 Weight Bearing Right Lower Extremity: Right Weight Bearing/Tolerated Gait Training Gait (FIM): 6 Distance (FIM): 3=150 ft Distance: 250' Gait Level of Assist: 6 Gait Assistive Device: FWW slightly antalgic gait sequence Exercises Supine Ex: Ankle pumps, Quad Set, Heel Slides, Straight leg raise Supine Reps: 15 Seated Therapy Exercises: Ankle pumps, Long arc quads Seated Reps: 15 Assessment Patient tolerated treatment well and is up in recliner with needs met. Patient plans dismissal tomorrow to home. PT Short Term Goals Short Term Goals Time Frame: Sep 20, 2018 Transfers (B,C,W/C) (FIM): 5 Gait (FIM): 2 Gait Distance Comment: 50' Gait Level of Assist: 4 Gait Assistive Device: FWW PT Plan Treatment/Plan Treatment Plan: Continue Plan of Care Treatment Plan: Bed Mobility, Education, Functional Activity Gayathri, Functional Strength, Gait, Safety, Therapeutic Exercise, Transfers Treatment Duration: Sep 20, 2018 Frequency: 11 times per week Estimated Hrs Per Day: .25 hour per day (15-30') Patient and/or Family Agrees t: Yes Time/GCodes Time In: 831 Time Out: 854 Total Billed Treatment Time: 23 Total Billed Treatment 1 visit EX 10 min GT 13 min VEGA MACK PT Sep 14, 2018 10:01
--- NOTE | 2018-09-14 10:31 | Anesthesia-General Post-Op ---
General Patient Condition Mental Status/LOC: Same as Preop Cardiovascular: Satisfactory Nausea/Vomiting: Absent Respiratory: Satisfactory Pain: Controlled Complications: Absent Post Op Complications Complications None Follow Up Care/Instructions Patient Instructions None needed. Anesthesia/Patient Condition Patient Condition Patient is doing well, no complaints, stable vital signs, no apparent adverse anesthesia problems. No complications reported per nursing. CHRIS RAY CRNA Sep 14, 2018 10:31
[2018-09-14] MEDS: lisINopril 10 MG (PRINIVIL) TABLET PO SCH (10:59)
--- NOTE | 2018-09-14 11:35 | NUR ---
IRF Evaluation Order received to evaluate patient for the ARU. Chart reviewed and it appears patient is ambulating (250ft, FWW) and transferring with modified independence; therefore, the patient does not require intensive therapies, at this time. Thank you for this referral.
--- NOTE | 2018-09-14 13:31 | NUR ---
CM/SS, respond to referral. HHC: Reviewed agencies with patient who indicates her preference to be [facility]. Referral completed in anticipation of discharge Tuesday or Tuesday. DME: Patient has a FWW for home use. Patient has family who will be staying with her at home to assist as needed. She identifies no other needs at this time.
--- NOTE | 2018-09-14 13:53 | Occupational Therapy Eval ---
OT Evaluation-General/PLF Medical Diagnosis Admission Date Sep 13, 2018 at 05:53 Medical Diagnosis: right TKA Onset Date: Sep 13, 2018 Therapy Diagnosis Therapy Diagnosis: Decreased ADL skills Height/Weight Height (Feet): 5 Height (Inches): 2.00 Weight (Pounds): 206 Weight (Ounces): 8.0 Precautions Precautions/Isolations: Fall Prevention, Standard Precautions Safety Interventions: None Weight Bear Status Weight Bearing Restriction: Weight Bearing/Tolerated Referral Physician: Leobardo May Referral Reason: Activity Tolerance, Self Care, Evaluation/Treatment, Strengthening/ROM Medical History Pertinent Medical History: HTN, OA Additional Medical History Hematoma, hysterectomy Current History Pt. had elective right total knee. Reviewed History: Yes Social History Home: Single Level Current Living Status: Alone Entry Into Home: Level Entry ADL-Prior Level of Function Therapy Code Descriptions/Definitions Functional Willis Measure: 0=Not Assessed/NA 4=Minimal Assistance 1=Total Assistance 5=Supervision or Setup 2=Maximal Assistance 6=Modified Willis 3=Moderate Assistance 7=Complete Willis Therapy Quality Codes: 6 Independent with activity with or without an assistive device 5 Patient requires set up or clean up by helper. Patient completes activity by themselves 4 Supervision or touching assist (CGA). [place] provide cues , steadying assist 3 The helper provides less than half the effort to complete the activity 2 The helper provides more than half the effort to complete the activity 1 Dependent. The helper does all the effort to complete an activity 7 Patient refused to complete or attempt activity 9 The patient did not perform the activity before the current illness or injury 88 Not attempted due to Medical conditions or safety concerns Functional Abilities and Goals: Independent: Patient completed the activities by him/herself, with or without an assistive device, with no assistance from a helper. Needed Some Help: Patient needed partial assistance from another person to complete activities. Dependent: A helper completed the activities for the patient. Unknown: Not Applicable: ADL PLOF Comments Pt. states that she was fully independent with daily tasks previous to this hospitalization. Pt. lives in a apartment by herself, but her daughter is close and supportive. Self Care: Independent Functional Cognition: Independent DME/Equipment: Tub/Shower DME/Equipment Comments Pt. has a walker at home. Drive Self: Yes OT Current Status Subjective Pt. does not report pain at this time. Appearance Pt. up in chair. Alert and oriented and not reporting pain. Mental Status/Objective Patient Orientation: Person, Place, Time, Situation Current Upper Extremity ROM WFL ADL-Treatment Therapy Code Descriptions/Definitions Functional Willis Measure: 0=Not Assessed/NA 4=Minimal Assistance 1=Total Assistance 5=Supervision or Setup 2=Maximal Assistance 6=Modified Willis 3=Moderate Assistance 7=Complete Willis Therapy Quality Codes: 6 Independent with activity with or without an assistive device 5 Patient requires set up or clean up by helper. Patient completes activity by themselves 4 Supervision or touching assist (CGA). [place] provide cues , steadying assist 3 The helper provides less than half the effort to complete the activity 2 The helper provides more than half the effort to complete the activity 1 Dependent. The helper does all the effort to complete an activity 7 Patient refused to complete or attempt activity 9 The patient did not perform the activity before the current illness or injury 88 Not attempted due to Medical conditions or safety concerns Lower Body Dressing (FIM): 3 Toileting (FIM): 5 (per pt.) Transfers (B, C, W/C) (FIM): 5 (per pt.) Pt. up in chair. Daughter present in room. OT explains purpose of OT to her. Pt. reports that she has already ambulated this morning and did well. States that she just got up to chair, and has been to the bathroom. Pt. is asked if she would like a shower or to sponge bathe. Pt. reports that she does not at this time, but that her daughter can assist her later as needed. Pt. and daughter are educated about tub/transfer benches for home use, as she states that she has a tub. She states that she will "look into it" as needed if she has difficulty at home. Pt. is asked if she had any difficulty with toileting, and she does not. Pt. is able to doff/don left slipper sock, but unable to reach right foot. OT educates pt. about AE, but pt. reports that she is not interested in this, and that she can wear slip on shoes at home, or her daughter will assist her. Pt. declines using bathroom at this time with therapist. Reports that she has no needs at this time, and is hoping to leave tomorrow. OT encourages her and daughter to seek this therapist again if they should think of anything that they are concerned about. They both verbalize understanding. Education OT Patient Education: Correct positioning, Instructions to caregiver, Purpose of tx/functional activities, Reviewed precautions, Rehab process, Use of adapted equipment Teaching Recipient: Patient, Family Teaching Methods: Demonstration, Discussion Response to Teaching: Verbalize Understanding, Return Demonstration OT Short Term Goals Short Term Goals Transfers (B,C,W/C) (FIM): 5 1=Demonstrate adherence to instructed precautions during ADL tasks. 2=Patient will verbalize/demonstrate understanding of assistive devices/modifications for ADL. 3=Patient will improve strength/tolerance for activity to enable patient to perform ADL's. OT Retirement Goals Retirement Goals Time Frame: Sep 14, 2018 Pt. has been educated on AE needs, using tub/shower bench as needed, and OT goals. Pt. reports that she does not have concerns at this time nor does she think she will need occupational therapy at this time. Additional Goals: 2-Verbalize Understanding 1=Demonstrate adherence to instructed precautions during ADL tasks. 2=Patient will verbalize/demonstrate understanding of assistive devices/modifications for ADL. 3=Patient will improve strength/tolerance for activity to enable patient to perform ADL's. OT Education/Plan Problem List/Assessment Assessment: No Skilled OT Needs ID'd Per pt's verbalizations Discharge Recommendations Plan/Recommendations: Discontinue OT Therapy D/C Recommendations: Home w/ Family Support Equpiment Recommendations-D/C: Extended Bath Bench, Hip Kit Comment Pt. and daughter have been educated about AE and decline practicing or looking at equipment at this time. Treatment Plan/Plan of Care Treatment,Training & Education: Yes Patient would benefit from OT for education, treatment and training to promote independence in ADL's, mobility, safety and/or upper extremity function for ADL's. Plan of Care: ADL Retraining, Caregiver Training Treatment Duration: Sep 14, 2018 Frequency: 1 time per week Estimated Hrs Per Day: Other Agreement: Yes Rehab Potential: Fair Time/GCodes Start Time: 11:00 Stop Time: 11:17 Total Time Billed (hr/min): 17 Billed Treatment Time 1, BRAYAN DUONG OT Sep 14, 2018 13:53
--- NOTE | 2018-09-14 15:10 | Physical Therapy Daily Note ---
PT Daily Note-Current Subjective Patient agrees to PT. Currently on CPM Pain Numeric Pain Scale: 8 Location: Right Location Body Site: Knee Pain Description: Acute Mental Status Patient Orientation: Normal For Age Attachments: Polar Pack, IV Transfers Therapy Code Descriptions/Definitions Functional [place] Measure: 0=Not Assessed/NA 4=Minimal Assistance 1=Total Assistance 5=Supervision or Setup 2=Maximal Assistance 6=Modified [place] 3=Moderate Assistance 7=Complete [place] Therapy Quality Codes: 6 Independent with activity with or without an assistive device 5 Patient requires set up or clean up by helper. Patient completes activity by themselves 4 Supervision or touching assist (CGA). [place] provide cues , steadying assist 3 The helper provides less than half the effort to complete the activity 2 The helper provides more than half the effort to complete the activity 1 Dependent. The helper does all the effort to complete an activity 7 Patient refused to complete or attempt activity 9 The patient did not perform the activity before the current illness or injury 88 Not attempted due to Medical conditions or safety concerns Transfers (B, C, W/C) (FIM): 6 Scootin Supine to/from Sit: 6 Sit to/from Stand: 6 Weight Bearing Right Lower Extremity: Right Weight Bearing/Tolerated Gait Training Gait (FIM): 6 Distance (FIM): 3=150 ft Distance: 275' Gait Level of Assist: 6 Gait Assistive Device: FWW antalgic gait sequence Exercises Supine Ex: Ankle pumps, Quad Set, Heel Slides, Straight leg raise Supine Reps: 15 Seated Therapy Exercises: Long arc quads Seated Reps: 15 Assessment Patient improving with treatment plan and will dismiss to home tomorrow after therapy. PT Short Term Goals Short Term Goals Time Frame: Sep 20, 2018 Transfers (B,C,W/C) (FIM): 5 Gait (FIM): 2 Gait Distance Comment: 50' Gait Level of Assist: 4 Gait Assistive Device: FWW PT Plan Treatment/Plan Treatment Plan: Continue Plan of Care Treatment Plan: Bed Mobility, Education, Functional Activity Gayathri, Functional Strength, Gait, Safety, Therapeutic Exercise, Transfers Treatment Duration: Sep 20, 2018 Frequency: 11 times per week Estimated Hrs Per Day: .25 hour per day (15-30') Patient and/or Family Agrees t: Yes Time/GCodes Time In: 1437 Time Out: 1504 Total Billed Treatment Time: 24 Total Billed Treatment 1 visit GT 10 min EX 14 min FREDERICK,VEGA PT Sep 14, 2018 15:10
[2018-09-15 04:26] VITALS: BP 116/74
[2018-09-15] MEDS: oxyCODONE/APAP 5/325MG (PERCOCET 5) TABLET PO PRN ×3 (04:34→11:22)
[2018-09-15] MEDS: MULTIVIT W/MINERALS TAB (THERAGRAN M) PO SCH (06:20)
[2018-09-15 07:03] LABS: BASOPHILS % (AUTO) 0 % (0-10); EOSINOPHILS # (AUTO) 0.1 10^3/uL (0.0-0.3); EOSINOPHILS % (AUTO) 1 % (0-10); HEMATOCRIT 34 % (35-52); HEMOGLOBIN 11.1 G/DL (11.5-16.0); LYMPHOCYTES # (AUTO) 1.8 X 10^3 (1.0-4.0); LYMPHOCYTES % (AUTO) 22 % (12-44); MEAN CORPUSCULAR HEMOGLOBIN 32 PG (25-34); MEAN CORPUSCULAR HGB CONC 33 G/DL (32-36); MEAN CORPUSCULAR VOLUME 99 FL (80-99); MEAN PLATELET VOLUME 9.7 FL (7.4-10.4); MONOCYTES # (AUTO) 1.1 X 10^3 (0.0-1.0); MONOCYTES % (AUTO) 14 % (0-12); NEUTROPHILS # (AUTO) 5.2 X 10^3 (1.8-7.8); NEUTROPHILS % (AUTO) 64 % (42-75); PLATELET COUNT 194 10^3/uL (130-400); RED CELL DISTRIBUTION WIDTH 12.8 % (10.0-14.5); WHITE BLOOD COUNT 8.2 10^3/uL (4.3-11.0)
--- NOTE | 2018-09-15 07:06 | Progress Note-Standard ---
Standard Progress Note Progress Notes/Assess & Plan Date Seen by a Provider: Sep 15, 2018 Time Seen by a Provider: 07:05 Progress/Assessment & Plan post op check no complaints radiographs--HW well positioned without fracture RLE--2 plus DP pulse with brisk cap refill. sensation intact to light touch throughout. intact DF and PF of toes and ankle s/p RTKA mobilize as able Final Diagnosis no complaints Vital Signs Date Time Temp Pulse Resp B/P (MAP) Pulse Ox O2 Delivery O2 Flow Rate FiO2 09/15/18 04:26 98.0 71 18 116/74 (88) 96 Room Air 09/14/18 23:46 98.0 79 18 106/52 (70) 95 Room Air 09/14/18 21:00 Room Air 09/14/18 19:38 97.8 72 22 121/62 (81) 98 Room Air 09/14/18 15:41 98.0 60 22 122/58 (79) 99 Room Air 09/14/18 11:37 98.4 62 18 136/62 (86) 98 Room Air 09/14/18 10:56 Room Air 09/14/18 07:25 98.4 64 18 99/43 (61) 96 Room Air I & O 09/15/18 07:00 Intake Total 2068 ml Output Total 450 ml Balance 1618 ml Laboratory Tests Test 09/15/18 06:53 Range/Units White Blood Count 8.2 4.3-11.0 10^3/uL Red Blood Count 3.46 L 4.35-5.85 10^6/uL Hemoglobin 11.1 L 11.5-16.0 G/DL Hematocrit 34 L 35-52 % Mean Corpuscular Volume 99 80-99 FL Mean Corpuscular Hemoglobin 32 25-34 PG Mean Corpuscular Hemoglobin Concent 33 32-36 G/DL Red Cell Distribution Width 12.8 10.0-14.5 % Platelet Count 194 130-400 10^3/uL Mean Platelet Volume 9.7 7.4-10.4 FL Neutrophils (%) (Auto) 64 42-75 % Lymphocytes (%) (Auto) 22 12-44 % Monocytes (%) (Auto) 14 H 0-12 % Eosinophils (%) (Auto) 1 0-10 % Basophils (%) (Auto) 0 0-10 % Neutrophils # (Auto) 5.2 1.8-7.8 X 10^3 Lymphocytes # (Auto) 1.8 1.0-4.0 X 10^3 Monocytes # (Auto) 1.1 H 0.0-1.0 X 10^3 Eosinophils # (Auto) 0.1 0.0-0.3 10^3/uL Basophils # (Auto) 0.0 0.0-0.1 10^3/uL RLE--incision clean and dry. No calf tenderness. Neg Elaine's s/p RTKA doing well DC to home later today TYRA ECHEVERRIA MD Sep 15, 2018 07:06
[2018-09-15] MEDS ORDERED: morphine INJ 4 MG/ML 1 ML (VIAL/SYRINGE) IVP PRN (07:15)
[2018-09-15 07:27] LABS: ALANINE AMINOTRANSFERASE 24 U/L (0-55); ALBUMIN 3.7 GM/DL (3.2-4.5); ALKALINE PHOSPHATASE 70 U/L (40-136); BILIRUBIN,TOTAL 0.6 MG/DL (0.1-1.0); BUN/CREATININE RATIO 14; CALCIUM 8.5 MG/DL (8.5-10.1); CARBON DIOXIDE 23 MMOL/L (21-32); CHLORIDE 107 MMOL/L (98-107); CREATININE SERUM 0.64 MG/DL (0.60-1.30); GFR ESTIMATED > 60; GLUCOSE 116 MG/DL (70-105); POTASSIUM 4.1 MMOL/L (3.6-5.0); SODIUM 136 MMOL/L (135-145)
[2018-09-15 07:44] VITALS: BP 101/65
--- NOTE | 2018-09-15 08:03 | DISCHARGE SUMMARY ---
DATE OF SERVICE: DIAGNOSIS: Right knee primary osteoarthritis. PROCEDURE: Right total knee arthroplasty. SUMMARY: The patient is a 62-year-old female who was admitted the day of right total knee arthroplasty, which she underwent without complications. Postoperatively, she did well. At the time of discharge, her wound was clean and dry. She had no calf tenderness. Negative Homans sign. She was tolerating diet well and tolerating pain with oral pain medication. CONDITION ON DISCHARGE: Good. DISCHARGE DIET: Regular. FOLLOWUP: Followup is in three weeks. Home physical therapy has been arranged. DISCHARGE MEDICATIONS: Percocet as needed for pain with aspirin one per day for 30 days. ACTIVITIES: Weightbearing as tolerated with a walker. Job ID: [id number] DocumentID: [id number] Dictated Date: 09/14/2018 17:37:12 Filtering Machine Tender Helper Date: 09/15/2018 08:02:35 Dictated By: TYRA ECHEVERRIA MD
[2018-09-15] MEDS: SENNA W/DOCUSATE (SENOKOT S) TABLET PO SCH (08:16)
[2018-09-15] MEDS: ENOXAPARIN 30 MG/0.3 ML (LOVENOX) SYR SC SCH (08:16)
[2018-09-15] MEDS: lisINopril 10 MG (PRINIVIL) TABLET PO SCH (08:16)
[2018-09-15] MEDS: ASPIRIN E.C. 81 MG (ECOTRIN) TAB PO SCH (08:16)
--- NOTE | 2018-09-15 08:20 | NUR ---
CAFETERIA DIRECTOR PUMP DISCONTINUED, 88 ML WASTED WITH ANA GARCIA
--- NOTE | 2018-09-15 10:16 | Physical Therapy Daily Note ---
PT Daily Note-Current Subjective Patient has increase c/o right knee pain on this date with meds issued. Agrees to PT. Pain Numeric Pain Scale: 8 Location: Right Location Body Site: Knee Pain Description: Acute Mental Status Patient Orientation: Normal For Age Transfers Therapy Code Descriptions/Definitions Functional [place] Measure: 0=Not Assessed/NA 4=Minimal Assistance 1=Total Assistance 5=Supervision or Setup 2=Maximal Assistance 6=Modified [place] 3=Moderate Assistance 7=Complete [place] Therapy Quality Codes: 6 Independent with activity with or without an assistive device 5 Patient requires set up or clean up by helper. Patient completes activity by themselves 4 Supervision or touching assist (CGA). [place] provide cues , steadying assist 3 The helper provides less than half the effort to complete the activity 2 The helper provides more than half the effort to complete the activity 1 Dependent. The helper does all the effort to complete an activity 7 Patient refused to complete or attempt activity 9 The patient did not perform the activity before the current illness or injury 88 Not attempted due to Medical conditions or safety concerns Transfers (B, C, W/C) (FIM): 6 Scootin Supine to/from Sit: 6 Sit to/from Stand: 6 Bed to/from Chair: 6 Weight Bearing Right Lower Extremity: Right Weight Bearing/Tolerated Gait Training Gait (FIM): 6 Distance (FIM): 3=150 ft Distance: 350' Gait Level of Assist: 6 Gait Assistive Device: FWW slow, antalgic Stair Training Stair Training: Handrails/: 2 handrails Stairs (FIM): 2 #of Steps: 4 Stairs: Pattern: Step to Level of Assist: 5 Exercises Supine Ex: Ankle pumps, Quad Set, Heel Slides, Straight leg raise Supine Reps: 15 Seated Therapy Exercises: Long arc quads Seated Reps: 15 Assessment Patient is very resistive with ROM right knee flexion, however, improved with treatment. Patient dismissing to home on this date. PT Short Term Goals Short Term Goals Time Frame: Sep 20, 2018 Transfers (B,C,W/C) (FIM): 5 Gait (FIM): 2 Gait Distance Comment: 50' Gait Level of Assist: 4 Gait Assistive Device: FWW PT Plan Treatment/Plan Treatment Plan: Discontinue PT, goals met Treatment Plan: Bed Mobility, Education, Functional Activity Gayathri, Functional Strength, Gait, Safety, Therapeutic Exercise, Transfers Treatment Duration: Sep 20, 2018 Frequency: 11 times per week Estimated Hrs Per Day: .25 hour per day (15-30') Patient and/or Family Agrees t: Yes Discharge Recommendations Therapy D/C Recommendations: Physical Therapy Home Care Time/GCodes Time In: 922 Time Out: 945 Total Billed Treatment Time: 23 Total Billed Treatment 1 visit FA 13 min EX 10 min VEGA MACK PT Sep 15, 2018 10:16
--- NOTE | 2018-09-15 11:08 | Progress Note-Hospitalist ---
Subjective HPI/CC On Admission Date Seen by Provider: Sep 15, 2018 Time Seen by Provider: 09:30 CC: Medical management following uncomplicated right total knee replacement POD # 0 HPI: This is a 62yoWF pt of Dr. Santoro underwent a complicated right total knee replacement today by Dr. Hewitt. Her family is at the bedside including her son, daughter, and granddaughter. She reports no chest pain no SOB and she has been able to urinate since surgery pain is well controlled ice pack is on the right knee and has no new issues to report. I did restart her Lisinopril home medication and I will check labs in the morning and monitor closely for any clinical status decline. Subjective/Events-last exam Patient doing well Ready for discharge Reviewed labs Pain is controlled Bowels are moving now Review of Systems Musculoskeletal: leg pain Objective Exam Vital Signs Vital Signs Date Time Temp Pulse Resp B/P (MAP) Pulse Ox O2 Delivery O2 Flow Rate FiO2 09/15/18 09:02 16 09/15/18 08:56 Room Air 09/15/18 07:44 98.0 67 101/65 (77) 95 09/13/18 15:18 2.00 Capillary Refill : Less Than 3 Seconds General Appearance: No Apparent Distress, WD/WN, Obese HEENT: PERRL/EOMI, TMs Normal, Normal ENT Inspection, Pharynx Normal Neck: Full Range of Motion, Normal Inspection, Non Tender, Supple, Carotid Bruit Respiratory: Chest Non Tender, Lungs Clear, Normal Breath Sounds, No Accessory Muscle Use, No Respiratory Distress Cardiovascular: Regular Rate, Rhythm, No Edema, No Gallop, No JVD, No Murmur, Normal Peripheral Pulses Gastrointestinal: Normal Bowel Sounds, No Organomegaly, No Pulsatile Mass, Non Tender, Soft Back: Normal Inspection, No CVA Tenderness, No Vertebral Tenderness Extremity: Normal Capillary Refill, Normal Inspection, Normal Range of Motion (except right knee s/p OR), Non Tender, No Calf Tenderness, No Pedal Edema Neurologic/Psychiatric: Alert, Oriented x3, No Motor/Sensory Deficits, Normal Mood/Affect Skin: Normal Color, Warm/Dry Lymphatic: No Adenopathy Results/Procedures Lab Laboratory Tests 09/15/18 06:53 Patient resulted labs reviewed. Assessment/Plan Assessment and Plan Assess & Plan/Chief Complaint Assessment: s/p right TKA POD # 2 HTN OA Plan: DC home Home meds Diagnosis/Problems Diagnosis/Problems (1) Status post total right knee replacement Status: Acute (2) Hypertension Status: Chronic Qualifiers: Hypertension type: essential hypertension Qualified Codes: I10 - Essential (primary) hypertension (3) Osteoarthritis of right knee Status: Chronic Qualifiers: Osteoarthritis type: primary Qualified Codes: M17.11 - Unilateral primary osteoarthritis, right knee Clinical Quality Measures DVT/VTE Risk/Contraindication: Risk Factor Score Per Nursin RFS Level Per Nursing on Admit: 4+=Very High LORIN CARDENAS DO Sep 15, 2018 11:08
[2018-09-15 12:45] VITALS: BP 101/65
--- NOTE | 2018-09-20 14:24 | Progress Note-Standard ---
Standard Progress Note Progress Notes/Assess & Plan Date Seen by a Provider: Sep 13, 2018 Time Seen by a Provider: 07:15 Progress/Assessment & Plan Late Entry for Anesthesia Plan: Saphenous Nerve block for postoperative pain control at surgeons request. REINA CHIANG CRNA Sep 20, 2018 14:24
== END 2018-09-15 12:50 | disposition home health service (06) | DRG 470 ==
LOC: 4TH 05:53 → SURG 05:54 → 4TH 10:37
PROVIDERS: ADMIT Orthopaedic Surgery; ATTEND Orthopaedic Surgery
PROC: 0SRC0J9 Replacement of Right Knee Joint with Synthetic Substitute, Cemented, Open Approach (ICD-10-PCS; principal; 2018-09-13 07:28)
DX: M17.11 Unilateral primary osteoarthritis, right knee (principal); I10 Essential (primary) hypertension; K21.9 Gastro-esophageal reflux disease without esophagitis
CPT/HCPCS: 36415; 73560; 80053; 85025; 86850; 86900; 86901; 94664

== ENCOUNTER 2018-11-21 12:55 | Outpatient (RCR) | payer BC, OTHER ==
[~2018-11-21 12:55] MED LIST changes: +OXYC1TAB87 PO
== END 2018-12-20 10:06 | disposition home or self-care (01) ==
PROVIDERS: ATTEND Orthopaedic Surgery
DX: Z47.1 Aftercare following joint replacement surgery (principal); Z96.651 Presence of right artificial knee joint